=== PATIENT | male | born 1960 | race Caucasian/White ===

== ENCOUNTER → 2021-09-21 12:12 | Outpatient (BNVA) | payer OTHER, SELFPAY | PROVIDERS: PCP Internal Medicine; Visit Provider Physician Assistant | DX: Z86.010 Personal history of colon polyps (principal) | CPT/HCPCS: 99202; 99212 ==

== ENCOUNTER 2021-09-26 07:33 | Day surgery (SDC) | payer OTHER, SELFPAY ==
--- NOTE | 2021-09-25 09:20 | P.CONAN_ITS ---
Documented by User: Isabel Denies NP 09/25/21 09:20 HPI - Anesthesia Eval Consult details Narrative: 60yo M for Colonoscopy [facility] Active Problems Active Problems: All Active Problems (Updated 09/21/21 @ 13:04 by Rachell Leong PA-C) History of colon polyps (Acute) Colon cancer (Acute) Social History Social History Household Members: Spouse Alcohol intake: current Alcohol intake frequency: does not drink Patient Tobacco Use Status: Never used Tobacco Are you DNR?: No Advance Directives: No Advance Directives Information Provided: Yes Recently lost weight without trying: No Nutrition Risks: No Nutritional Risk Current occupational status: employed Meds Allergies Allergy/AdvReac Type Severity Reaction Status Date / Time hydrocortisone Allergy Severe Rash Verified 09/21/21 07:34 Penicillins Allergy Unknown Unknown Verified 09/21/21 12:24 Exam Exam Date and Time: September 25, [id number] Assessment and Plan Assessment Anesthesia Assessment: Chart Reviewed Documented by User: Jeramy Collins MD 09/26/21 07:53 [facility] Family History Family history of problems with anesthesia: No Surgical History History of Problems with Anesthesia: No Social History Social History Household Members: Spouse Alcohol intake: current Alcohol intake frequency: does not drink Patient Tobacco Use Status: Never used Tobacco Are you DNR?: No Advance Directives: No Advance Directives Information Provided: Yes Recently lost weight without trying: No Nutrition Risks: No Nutritional Risk Current occupational status: employed Meds Allergies Allergy/AdvReac Type Severity Reaction Status Date / Time hydrocortisone Allergy Severe Rash Verified 09/21/21 07:34 Penicillins Allergy Unknown Unknown Verified 09/21/21 12:24 Exam Airway Mallampati Class: III TM Dist: >3cm Neck ROM: Full Loose/Missing/Broken Teeth: No Heart: rrr Lungs: clear Assessment and Plan Final Anesthetic Review Family History of Problems with Anesthesia: No History of Problems with Anesthesia: No ASA Class: II Final Preanesthetic Review: No Changes in Pt Med Stat, Meds/Allgs Chart Reviewed, Consent Obtained/Reviewed and Anes Risks/Benef Reviewed Patient Risk: Low Procedure Risk: Low Anesthetic Plan Anesthetic Plan: MAC: Disposition: Standard PACU
[2021-09-26 05:28] VITALS: BMI 34.8
[2021-09-26 07:38] VITALS: BP 143/81; PULSE 59; RESP 19; TEMP 36.3; O2SAT 98
--- NOTE | 2021-09-26 09:50 | MHC.SHP ---
Pre-Procedural Eval Section A Date of Service: 09/26/21 Section B Chief Complaint: History of colon polyps Relevant Family History (Specify if Yes): No Relevant Social History: None Present Medications: see Short Stay Collaborative assessment Medical History: Significant History (colon polyps,anxiety, dyslipidemia) History of Previous Operations: No relevant previous surgery Allergies: Allergies Allergy/AdvReac Type Severity Reaction Status Date / Time hydrocortisone Allergy Severe Rash Verified 09/21/21 07:34 Penicillins Allergy Unknown Unknown Verified 09/21/21 12:24 Review of Systems Sugical H&P ROS: Negative: Constitution, Cardiovascular, Respiratory, Neurological, Psychiatric, Hem-Onc, Allergic/Immunologic, Gastrointestinal, Genitourinary, Musculoskeletal, Integumentary, Endocrine and Eyes/Ears/Nose/Throat Exam Surgical H&P Exam: Normal: HEENT, Normal: Heart, Normal: Lungs, Normal: Extremities, Normal: Abdomen, Normal: Skin and Normal: Neurological Plan Diagnosis/Plan: Unchanged I have reviewed the history and physical and performed a pertinent physical examination on my patient. No changes have occurred unless specified.
--- NOTE | 2021-09-26 09:59 | W.PM.OPN ---
Operative Note Operative Note Date of Service: 09/26/21 Narrative: Operative Information Procedure Description: Colonoscopy Indication: Hx of colon polyps Anesthesia: MAC COLONOSCOPY Instrument: Olympus variable stiffness pediatric scope 190L Colonoscopy Monitoring: Vital signs and clinical assessment, continuous EKG monitoring, Pulse oximetry, Carbon Dioxide monitoring and blood pressure monitoring were done throughout the procedure. Colon withdrawal time was 13 minutes. Procedure: The patient was placed in the left lateral decubitis position and pre-procedure medications were administered. After a digital rectal examination of the ano-rectum, the video colonoscope was inserted into the rectum and advanced through the colon to the cecum/TI. The colonoscope was slowly withdrawn in a retrograde panoramic fashion and the colon mucosa was carefully examined including a retroflexed view of the rectum. Findings and interventions are described below. Procedure Difficulty: easy Findings: Terminal Ileum-normal Cecum:normal Ascending Colon: 8-10 mm sessile polyp removed with cold snare Transverse Colon -normal Descending Colon:normal Sigmoid Colon: 10 mm sessile polyp removed with cold snare Rectum: Retroflexion with moderate sized inflammed internal hemorrhoids, grade II, x 3 sessile polyps 10-12 mm removed with cold snare Anorectum - internal hemorrhoid seen on forward view Colon preparation: [place] Bowel Preparation Scale Right colon; 2 Transverse colon: 3 Left colon; 2 (0 = Unprepared colon segment with mucosa not seen due to solid stool that cannot be cleared. 1 = Portion of mucosa of the colon segment seen, but other areas of the colon segment not well seen due to staining, residual stool and/or opaque liquid. 2 = Minor amount of residual staining, small fragments of stool and/or opaque liquid, but mucosa of colon segment seen well. 3 = Entire mucosa of colon segment seen well with no residual staining, small fragments of stool or opaque liquid) Impression and Post Procedure Diagnosis: polyps internal hemorrhoids Plan: High fiber diet leaflet Avoid straining at stool, epsom salts and sitz bath, anusol supps or cream Repeat Colonoscopy in 3-5 years due to polyps or earlier if clinically indicated Above findings were reviewed with the patient and relevant handouts were provided if indicated.
[2021-09-26 10:50] VITALS: BP 131/70; PULSE 48; RESP 24; TEMP 36.2; O2SAT 96
[2021-09-26 11:05] VITALS: BP 118/71; PULSE 55; RESP 18; TEMP 36.2; O2SAT 97
== END 2021-09-26 11:42 | disposition home or self-care (01) ==
PROVIDERS: PCP Internal Medicine; Visit Provider Internal Medicine Gastroenterology
PROC: 0DJD8ZZ Inspection of Lower Intestinal Tract, Via Natural or Artificial Opening Endoscopic (ICD-10-PCS; CPT 45378; principal; 2021-09-26 08:50)
DX: Z12.11 Encounter for screening for malignant neoplasm of colon (principal); Z86.010 Personal history of colon polyps; D12.2 Benign neoplasm of ascending colon; K63.5 Polyp of colon; K59.00 Constipation, unspecified; K62.1 Rectal polyp; K64.1 Second degree hemorrhoids; Z88.0 Allergy status to penicillin; Z88.8 Allergy status to other drugs, medicaments and biological substances
CPT/HCPCS: 45385; 88305

== ENCOUNTER 2021-10-17 11:53 | Outpatient (REF) | payer OTHER, SELFPAY ==
--- NOTE | ~2021-10-17 | XR_ITS ---
EXAMINATION: XR SINUSES CLINICAL INFORMATION: Disorders of nose and nasal sinuses COMPARISON: None TECHNIQUE: 3 views of the sinuses were obtained. FINDINGS: Paranasal sinuses appear clear without air-fluid levels. No fractures are identified. No radiodense foreign bodies. XR/XR sinus min 3V IMPRESSION: Unremarkable sinus examination.
== END 2021-10-17 11:54 | disposition home or self-care (01) ==
LOC: HO.XRAY 11:53
PROVIDERS: PCP Internal Medicine; Visit Provider Internal Medicine
DX: J34.89 Other specified disorders of nose and nasal sinuses (principal)
CPT/HCPCS: 70220

== ENCOUNTER 2021-11-17 08:17 | Outpatient (REF) | payer OTHER, SELFPAY ==
--- NOTE | ~2021-11-17 | MR_ITS ---
EXAMINATION: MR BRAIN WITHOUT AND WITH CONTRAST CLINICAL INFORMATION: Left facial pain. Pressure in left eye. Migraines. Sensitivity to light. Concerning for trigeminal neuralgia. COMPARISON: Sinus radiographs 10/17/2021. TECHNIQUE: Multiplanar MR imaging of the head was performed without and with contrast. A total of 10 mL Gadavist was utilized for this examination. FINDINGS: The cisternal segments of the trigeminal nerves demonstrate normal morphology on coronal reconstructions of the high-resolution skull base imaging. Branches of the right and left superior cerebellar arteries cause subtle abutment along the superior surfaces of both trigeminal nerves near the apparent origin from the lateral margarito. No anatomic distortion of the nerve root contours. No cerebellopontine angle cistern mass. Postcontrast images reveal no abnormal enhancement along the cisternal segments of the trigeminal nerves. There is no abnormal mass or enhancement visualized elsewhere within the intracranial compartment. There are scattered nonspecific foci of T2 FLAIR signal hyperintensity within the periventricular white matter. No acute territorial infarct. Intracranial vascular flow voids are maintained. There is no mastoid or middle ear effusion. Moderate paranasal sinus disease primarily affecting the ethmoid air cells. Globes and orbits are symmetric. Specifically there is no abnormal retrobulbar mass or enhancement. Visualized soft tissues of the neck are unremarkable. MR/MR head/brain wo/w con IMPRESSION: Unremarkable examination. No discrete anatomic finding to provide an explanation for the patient's facial paresthesias and headaches.
== END 2021-11-17 08:18 | disposition home or self-care (01) ==
LOC: HO.MRI 08:17
PROVIDERS: Visit Provider Internal Medicine
DX: R20.2 Paresthesia of skin (principal)
CPT/HCPCS: 70553; A9585

== ENCOUNTER 2022-01-25 12:29 | Outpatient (REF) | payer OTHER, SELFPAY ==
[2022-01-25 14:13] LABS: Erythrocyte Sedimentation Rate 5 MM/HR (0-15)
== END 2022-01-25 12:30 | disposition home or self-care (01) ==
LOC: HO.LAB 12:29
PROVIDERS: PCP Internal Medicine; Visit Provider Psychiatry & Neurology Neurology
DX: G43.909 Migraine, unspecified, not intractable, without status migrainosus (principal)
CPT/HCPCS: 36415; 85652